=== PATIENT | female | born 1990 | race Caucasian/White ===

== ENCOUNTER 2019-01-07 12:14 | Outpatient (CLI) | payer MEDICAID, SELFPAY ==
[2019-01-08 11:56] LABS: Hepatitis B Surface Ag Negative (NEGAT)
[2019-01-08 12:04] LABS: Syphilis Serology (RPR) Negative (Negative)
[2019-01-08 12:37] LABS: HIV-1/2 Ag & Ab Screen Negative (NEGAT)
[2019-01-08 12:38] LABS: Hepatitis C Ab w Rflx HCV PCR Negative (NEGAT)
== END 2019-01-07 12:34 ==
PROVIDERS: Visit Provider Nurse Practitioner Women's Health
DX: Z11.3 Encounter for screening for infections with a predominantly sexual mode of transmission (principal); Z11.4 Encounter for screening for human immunodeficiency virus [HIV]; Z11.59 Encounter for screening for other viral diseases; Z01.84 Encounter for antibody response examination
CPT/HCPCS: 36415; 86803; 87340; 87389; 86592

== ENCOUNTER 2019-01-07 12:59 | Outpatient (REF) | payer MEDICAID, SELFPAY ==
--- NOTE | 2019-01-07 11:45 | PAPFT_PTH ---
PATIENT: Elidia Brennan LOC: [facility] U#:[id number] AGE/SX: 28/F ROOM: RE01/07/[address]: Anahi Montero NP : 1990 BED: DIS: 01/07/2019 SPEC #: [id number] RECD: 01/07/19 17:49 STATUS: ALECIA SANTILLAN #: [id number] HAIR: 01/07/19 11:[address]: Anahi Montero NP DEPT: [facility] Cytology RECD BY: Gena Davies ENTERED: 01/07/19 17:49 SP TYPE: PAPFT TRINOHR DR: Julieta Bhatti Tissues: 1 - CX/ENDOCX FOR PAP SMEARS Procedures: PAP THIN PREP/UVM Screening Comments: [id number] (CHLAMYDIA/GC)
[2019-01-08 15:05] LABS: Chlamydia Result Negative; GC Result Negative; Specimen Description SEE COMMENTS
== END 2019-01-07 13:19 ==
LOC: LBN 12:59
PROVIDERS: Visit Provider Nurse Practitioner Women's Health
DX: Z11.3 Encounter for screening for infections with a predominantly sexual mode of transmission (principal); Z12.4 Encounter for screening for malignant neoplasm of cervix; Z11.51 Encounter for screening for human papillomavirus (HPV)
CPT/HCPCS: 87491; 87591; 88142

== ENCOUNTER 2019-01-19 00:50 | Emergency (ER) | payer MEDICAID, SELFPAY ==
--- NOTE | 2019-01-19 00:55 | W.ED.GENAD ---
Discharge Plan Disposition Patient Disposition: HOME Condition: Stable Discharge Details Chief Complaint: Urinary Clinical Impression: Urinary frequency Primary Care Provider: Marina Rand ED Provider: Jesus Manuel Montero Home Meds and New Rx's Prescriptions: New cefuroxime axetil 500 mg tablet 500 mg PO Q12H 3 Days Qty: 6 RF: 0 phenazopyridine [Pyridium] 200 mg tablet 200 mg PO TID 0 Days RF: 0 No Action aspirin [Adult Aspirin Regimen] 81 mg tablet,delayed release (DR/EC) 81 mg PO DAILY RF: 0 ranitidine HCl [Zantac] 150 mg tablet 150 mg PO BID RF: 0 oxycodone 5 mg tablet 5 mg PO BID RF: 0 albuterol sulfate [ProAir HFA] 90 mcg/actuation HFA aerosol inhaler 2 puff IH Q6H PRNRF: 0 melatonin [Melatin] 3 mg tablet 3 mg PO HS PRNRF: 0 lidocaine 3 % cream 1 applic TP BID PRNRF: 0 Excedrin Extra Strength 250-250-65 mg tablet 2 tab PO Q6H PRNRF: 0 acetaminophen [Tylenol] 325 mg capsule 650 mg PO QID PRNRF: 0 [place] 3-15-5 % cream TP DAILY PRN RF: 0 turmeric root extract 500 mg capsule 500 mg PO BID RF: 0 Discharge Instructions Additional Instructions: you should be contacted with an appointment with urology for follow up if you develop severe back pain with fevers or persistent vomit or abdominal pain return to the emergency department for reevaluation Medical Decision Making 28 yo female with hx of interstitial cystitis comes in with urinary urgency and burning for about a week, finished 3 day course of cefuroxime on 01/18 and symptoms were improving but have returned. HAs no cva tenderness or abdominal tenderness or fevers so doubt pyelo or sepsis. symptoms are with urination so doubt cervicitis or other vaginal pathologies. Will obtain UA, could be cystitis vs interstitial cystitis urinalysis is unremarkable. She remains stable. She states that in the past she has needed 10 days of abx to treat her utis. I did advise this is a lengthy course and typically isn't recommended for cystitis. She is requesting 3 more days of abx and after discussion of pros and cons of this will provide her 3 more days of cerfuroxime. I am also going to refer her to urology at the [facility] for interstitial cystitis within the next few weeks. She was given return precautions Differential Diagnosis interstitial cystitis, uti, cystitis HPI General Mode of arrival: ambulatory. Date/Time Provider Initiated Documentation: 01/19/19 00:54. Limitations to Documentation: no limitations. Information obtained by: patient. History of Present Illness 28 year old F presents to the emergency department with the chief complaint of urinary urgency, described as moderate, Patient started experiencing this week(s) (1) and it has been constant. No relieving factors improve symptom(s), No exacerbating factors reported . Related Data Home Medications Medication Instructions Recorded Confirmed acetaminophen 325 mg capsule 650 mg PO QID PRN cap 01/07/19 01/07/19 albuterol sulfate HFA 90 2 puff IH Q6H PRN 01/07/19 01/07/19 mcg/actuation aerosol inhaler aspirin 81 mg tablet,delayed 81 mg PO DAILY 01/07/19 01/07/19 release lqzypak-wykkcircggoaj-ifofwmpg 250 2 tab PO Q6H PRN 01/07/19 01/07/19 mg-250 mg-65 mg tablet camphor-methyl salicylate-menthol applic TP DAILY PRN gm 01/07/19 01/07/19 3 %-15 %-5 % topical cream lidocaine 3 % topical cream 1 applic TP BID PRN 01/07/19 01/07/19 melatonin 3 mg tablet 3 mg PO HS PRN 01/07/19 01/07/19 oxycodone 5 mg tablet 5 mg PO BID tab 01/07/19 01/07/19 ranitidine 150 mg tablet 150 mg PO BID tab 01/07/19 01/07/19 turmeric root extract 500 mg 500 mg PO BID 01/07/19 01/07/19 capsule cefuroxime axetil 500 mg PO Q12H 3 Days #6 tab 01/19/19 phenazopyridine [Pyridium] 200 mg PO TID 0 Days tab 01/19/19 Previous Rx's Medication Instructions Recorded cefuroxime axetil 500 mg PO Q12H 3 Days #6 tab 01/19/19 phenazopyridine [Pyridium] 200 mg PO TID 0 Days tab 01/19/19 Allergies Allergy/AdvReac Type Severity Reaction Status Date / Time amoxicillin [From Augmentin] Allergy Severe Anaphylaxsi Verified 01/19/19 01:04 s clavulanic acid Allergy Severe Anaphylaxsi Verified 01/19/19 01:04 [From Augmentin] s egg Allergy Severe Anaphylaxsi Verified 01/19/19 01:04 s Penicillins Allergy Severe Anaphylaxsi Verified 01/19/19 01:04 s sulfamethoxazole Allergy Severe Anaphylaxsi Verified 01/19/19 01:04 [From Bactrim] s trimethoprim [From Bactrim] Allergy Severe Verified 01/19/19 01:04 gabapentin AdvReac Intermediate flushing Verified 01/19/19 01:04 and migraine headache Review of Systems Review of Systems All systems reviewed & are unremarkable except as noted in HPI and below Constitutional Denies chills and Denies fever(s) Cardiovascular Denies chest pain and Denies dyspnea Respiratory Denies cough and Denies dyspnea Gastrointestinal Denies abdominal pain, Denies nausea and Denies vomiting Psychiatric Denies depression [facility] Medical History Migraines (Chronic) PCOS (polycystic ovarian syndrome) (Acute) Interstitial cystitis (Acute) May-Thurner syndrome (Acute) Chronic pain (Chronic) Surgical History Hx of ovarian cystectomy (Acute) S/P cholecystectomy (Acute) [place] teeth extracted (Acute) Social History Smoking/Tobacco Use Status: Former Tobacco Use Alcohol Intake: current Alcohol Intake frequency: a few times a week Drug use: Never Do you feel safe at home: Yes Do you feel safe in your relationship?: Yes Female Reproductive History Menstrual control method: none History History 0 Para Hx # Term Pregnancies Multiple births Hx # Pregnancies Ectopic pregnancies AB induced Hx Number of Living Children AB spontaneous Exam Const General: no acute distress Orientation: alert HENMT Head: normal to inspection Ears: external ears normal General nose exam: external nose normal Mouth: moist mucous membranes Eyes General: appearance normal, both eyes and all related structures Neck Neck: normal visual inspection Resp Effort & Inspection: normal respiratory effort and able to speak in complete sentences Cardio Rate: regular rate GI Palpation: soft and nontender Back/Spine/Pelvis Back: no CVA tenderness Skin General skin exam: no rashes or lesions noted Neuro General: alert and oriented x3 Extrem General: normal to inspection Psych Mental Status: mental status grossly normal
[2019-01-19 00:59] VITALS: BP 121/72; PULSE 96; RESP 18; TEMP 37.2; O2SAT 99
[2019-01-19 01:03] LABS: Bilirubin Negative (Negative); Blood Negative (Negative); Clarity Clear; Glucose Negative (Negative); Ketones Negative (Negative); Leukocyte Esterase Negative (Negative); Nitrite Negative (Negative); Specific Gravity 1.025 (1.005-1.025); Urobilinogen 0.2 EU/dL (Up TO 0.2)
--- NOTE | 2019-01-19 01:14 | ED.GENADUL_ITS ---
Discharge Plan Disposition Patient Disposition: HOME Condition: Stable Discharge Details Chief Complaint: Urinary Clinical Impression: Urinary frequency Primary Care Provider: Marina Rand ED Provider: Jesus Manuel Montero Home Meds and New Rx's Prescriptions: New cefuroxime axetil 500 mg tablet 500 mg PO Q12H 3 Days Qty: 6 RF: 0 phenazopyridine [Pyridium] 200 mg tablet 200 mg PO TID 0 Days RF: 0 No Action aspirin [Adult Aspirin Regimen] 81 mg tablet,delayed release (DR/EC) 81 mg PO DAILY RF: 0 ranitidine HCl [Zantac] 150 mg tablet 150 mg PO BID RF: 0 oxycodone 5 mg tablet 5 mg PO BID RF: 0 albuterol sulfate [ProAir HFA] 90 mcg/actuation HFA aerosol inhaler 2 puff IH Q6H PRNRF: 0 melatonin [Melatin] 3 mg tablet 3 mg PO HS PRNRF: 0 lidocaine 3 % cream 1 applic TP BID PRNRF: 0 Excedrin Extra Strength 250-250-65 mg tablet 2 tab PO Q6H PRNRF: 0 acetaminophen [Tylenol] 325 mg capsule 650 mg PO QID PRNRF: 0 [place] 3-15-5 % cream TP DAILY PRN RF: 0 turmeric root extract 500 mg capsule 500 mg PO BID RF: 0 Discharge Instructions Additional Instructions: you should be contacted with an appointment with urology for follow up if you develop severe back pain with fevers or persistent vomit or abdominal pain return to the emergency department for reevaluation Medical Decision Making 28 yo female with hx of interstitial cystitis comes in with urinary urgency and burning for about a week, finished 3 day course of cefuroxime on 01/18 and symptoms were improving but have returned. HAs no cva tenderness or abdominal tenderness or fevers so doubt pyelo or sepsis. symptoms are with urination so doubt cervicitis or other vaginal pathologies. Will obtain UA, could be cystitis vs interstitial cystitis urinalysis is unremarkable. She remains stable. She states that in the past she has needed 10 days of abx to treat her utis. I did advise this is a lengthy course and typically isn't recommended for cystitis. She is requesting 3 more days of abx and after discussion of pros and cons of this will provide her 3 more days of cerfuroxime. I am also going to refer her to urology at [facility] for interstitial cystitis within the next few weeks. She was given return precautions Differential Diagnosis interstitial cystitis, uti, cystitis HPI General Mode of arrival: ambulatory . Date/Time Provider Initiated Documentation: 01/19/19 00:54 . Limitations to Documentation: no limitations . Information obtained by: patient . History of Present Illness 28 year old F presents to the emergency department with the chief complaint of urinary urgency, described as moderate, Patient started experiencing this week(s) (1) and it has been constant. No relieving factors improve symptom(s), No exacerbating factors reported . Related Data Home Medications Medication Instructions Recorded Confirmed acetaminophen 325 mg capsule 650 mg PO QID PRN cap 01/07/19 01/07/19 albuterol sulfate HFA 90 2 puff IH Q6H PRN 01/07/19 01/07/19 mcg/actuation aerosol inhaler aspirin 81 mg tablet,delayed 81 mg PO DAILY 01/07/19 01/07/19 release sitpxru-bqxsjiofcmdtr-vsnzpalp 250 2 tab PO Q6H PRN 01/07/19 01/07/19 mg-250 mg-65 mg tablet camphor-methyl salicylate-menthol applic TP DAILY PRN gm 01/07/19 01/07/19 3 %-15 %-5 % topical cream lidocaine 3 % topical cream 1 applic TP BID PRN 01/07/19 01/07/19 melatonin 3 mg tablet 3 mg PO HS PRN 01/07/19 01/07/19 oxycodone 5 mg tablet 5 mg PO BID tab 01/07/19 01/07/19 ranitidine 150 mg tablet 150 mg PO BID tab 01/07/19 01/07/19 turmeric root extract 500 mg 500 mg PO BID 01/07/19 01/07/19 capsule cefuroxime axetil 500 mg PO Q12H 3 Days #6 tab 01/19/19 phenazopyridine [Pyridium] 200 mg PO TID 0 Days tab 01/19/19 Previous Rx's Medication Instructions Recorded cefuroxime axetil 500 mg PO Q12H 3 Days #6 tab 01/19/19 phenazopyridine [Pyridium] 200 mg PO TID 0 Days tab 01/19/19 Allergies Allergy/AdvReac Type Severity Reaction Status Date / Time amoxicillin [From Augmentin] Allergy Severe Anaphylaxsi Verified 01/19/19 01:04 s clavulanic acid Allergy Severe Anaphylaxsi Verified 01/19/19 01:04 [From Augmentin] s egg Allergy Severe Anaphylaxsi Verified 01/19/19 01:04 s Penicillins Allergy Severe Anaphylaxsi Verified 01/19/19 01:04 s sulfamethoxazole Allergy Severe Anaphylaxsi Verified 01/19/19 01:04 [From Bactrim] s trimethoprim [From Bactrim] Allergy Severe Verified 01/19/19 01:04 gabapentin AdvReac Intermediate flushing Verified 01/19/19 01:04 and migraine headache Review of Systems Review of Systems All systems reviewed & are unremarkable except as noted in HPI and below Constitutional Denies chills and Denies fever(s) Cardiovascular Denies chest pain and Denies dyspnea Respiratory Denies cough and Denies dyspnea Gastrointestinal Denies abdominal pain, Denies nausea and Denies vomiting Psychiatric Denies depression [facility] Medical History Migraines (Chronic) PCOS (polycystic ovarian syndrome) (Acute) Interstitial cystitis (Acute) May-Thurner syndrome (Acute) Chronic pain (Chronic) Surgical History Hx of ovarian cystectomy (Acute) S/P cholecystectomy (Acute) [place] teeth extracted (Acute) Social History Smoking/Tobacco Use Status: Former Tobacco Use Alcohol Intake: current Alcohol Intake frequency: a few times a week Drug use: Never Do you feel safe at home: Yes Do you feel safe in your relationship?: Yes Female Reproductive History Menstrual control method: none History History 0 Para Hx # Term Pregnancies Multiple births Hx # Pregnancies Ectopic pregnancies AB induced Hx Number of Living Children AB spontaneous Exam Const General: no acute distress Orientation: alert HENMT Head: normal to inspection Ears: external ears normal General nose exam: external nose normal Mouth: moist mucous membranes Eyes General: appearance normal, both eyes and all related structures Neck Neck: normal visual inspection Resp Effort & Inspection: normal respiratory effort and able to speak in complete sentences Cardio Rate: regular rate GI Palpation: soft and nontender Back/Spine/Pelvis Back: no CVA tenderness Skin General skin exam: no rashes or lesions noted Neuro General: alert and oriented x3 Extrem General: normal to inspection Psych Mental Status: mental status grossly normal
[2019-01-19] MEDS: Cefuroxime 500 MG TAB PO (01:29)
--- NOTE | 2019-01-19 10:11 | NUR.NOTE ---
Nursing Note: [facility] Urology referral for follow up. Carmen Guzman.
== END 2019-01-19 01:34 | disposition home or self-care (01) ==
PROVIDERS: Emergency Provider Emergency Medicine; PCP Nurse Practitioner Family
DX: R35.0 Frequency of micturition (principal); R39.15 Urgency of urination; N30.10 Interstitial cystitis (chronic) without hematuria
CPT/HCPCS: 81025; 99283; 81003; 87086

== ENCOUNTER 2019-08-25 00:51 | Outpatient (CLI) | payer MEDICAID, SELFPAY ==
--- NOTE | 2019-08-25 12:07 | DI.MRI_ITS ---
EXAM: MR CERVICAL SPINE WO CLINICAL HISTORY: RADICULOPATHY, CERVICAL REGION M54.12. TECHNIQUE: Multiplanar multisequence MRI was performed. COMPARISON: No exams were available for comparison FINDINGS: Marrow signal and cord signal appear normal. The C2-3, C3-4 at C4-5 discs are unremarkable. There is minimal bulging of the C5-6 and C6-7 discs. There is no central canal stenosis or neural foraminal narrowing. No focal disc herniation is seen at any level. IMPRESSION: Minimal disc bulging at C5-6 and C6-7.
== END 2019-08-25 01:11 ==
PROVIDERS: PCP Nurse Practitioner Family; Visit Provider Nurse Practitioner Family
DX: M54.12 Radiculopathy, cervical region; M50.122 Cervical disc disorder at C5-C6 level with radiculopathy; M50.123 Cervical disc disorder at C6-C7 level with radiculopathy
CPT/HCPCS: 72141

== ENCOUNTER 2019-09-30 03:52 | Emergency (ER) | payer MEDICAID, SELFPAY ==
[2019-09-30 03:59] VITALS: BP 119/77; PULSE 86; RESP 16; TEMP 36.6; O2SAT 100
--- NOTE | 2019-09-30 03:59 | W.ED.GENAD ---
Discharge Plan Disposition Patient Disposition: HOME Condition: Good Discharge Details Chief Complaint: Urinary Clinical Impression: UTI (urinary tract infection) Primary Care Provider: Marina Rand ED Provider: Tahir Wallace [place] Meds and New Rx's Prescriptions: New ondansetron 4 mg tablet,disintegrating 4 mg PO Q8H PRN (Reason: nausea and vomiting) Qty: 7 RF: 0 nitrofurantoin monohyd/m-cryst [Macrobid] 100 mg capsule 100 mg PO BID Qty: 7 RF: 0 Continued aspirin [Adult Aspirin Regimen] 81 mg tablet,delayed release (DR/EC) 81 mg PO DAILY RF: 0 ranitidine HCl [Zantac] 150 mg tablet 150 mg PO BID RF: 0 oxycodone 5 mg tablet 5 mg PO BID RF: 0 albuterol sulfate [ProAir HFA] 90 mcg/actuation HFA aerosol inhaler 2 puff IH Q6H PRNRF: 0 melatonin [Melatin] 3 mg tablet 3 mg PO HS PRNRF: 0 lidocaine 3 % cream 1 applic TP BID PRNRF: 0 Excedrin Extra Strength 250-250-65 mg tablet 2 tab PO Q6H PRNRF: 0 acetaminophen [Tylenol] 325 mg capsule 650 mg PO QID PRNRF: 0 [place] 3-15-5 % cream 1 applic TP DAILY PRN RF: 0 turmeric root extract 500 mg capsule 500 mg PO BID RF: 0 phenazopyridine [Pyridium] 200 mg Tablet 200 mg PO TID PRNRF: 0 Discharge Instructions Instructions: Ondansetron (By mouth), Nitrofurantoin Combination (By mouth), Urinary Tract Infection in Women (ED) Additional Instructions: Continue your Pyridium. Use Zofran as needed for nausea vomiting. Macrobid as directed for 5 days. Follow-up with primary care next week if not better. Return to ED for increasing pain, vomiting, fever, mental status changes, other concerns or problems. Referrals: Marina Rand [Primary Care Provider] - Medical Decision Making Urine test negative. Urine micro and culture ordered. Will give Zofran ODT for nausea and Macrobid for presumed UTI. Patient to continue her Pyridium. Follow-up with primary care next week if continued symptoms. Return to ED if high fever, vomiting, worsening pain, mental status changes, other concerns. HPI General Mode of arrival: ambulatory. Date/Time Provider Initiated Documentation: 09/30/19 03:58. Limitations to Documentation: no limitations. Information obtained by: patient and RN notes reviewed. HPI Narrative: Patient presents to ED with dysuria, urgency, frequency that began yesterday. She has had some chills but no fever that she is aware of. She has nausea but no vomiting. She has a lot of suprapubic lower abdominal discomfort. She has a history of frequent UTIs. She has a standing order for Pyridium which she has been taking. She does not have any antibiotics at home. She presents this coding coordinator with continued urinary symptoms. Related Data Home Medications Medication Instructions Recorded Confirmed acetaminophen 325 mg capsule 650 mg PO QID PRN cap 01/07/19 09/30/19 albuterol sulfate 90 mcg/actuation 2 puff IH Q6H PRN 01/07/19 09/30/19 aerosol inhaler aspirin 81 mg tablet,delayed 81 mg PO DAILY 01/07/19 09/30/19 release enqukua-cgbxhxdfovarg-tivalfnb 250 2 tab PO Q6H PRN 01/07/19 09/30/19 mg-250 mg-65 mg tablet camphor-methyl salicylate-menthol 1 applic TP DAILY PRN gm 01/07/19 09/30/19 3 %-15 %-5 % topical cream lidocaine 3 % topical cream 1 applic TP BID PRN 01/07/19 09/30/19 melatonin 3 mg tablet 3 mg PO HS PRN 01/07/19 09/30/19 oxycodone 5 mg tablet 5 mg PO BID tab 01/07/19 09/30/19 ranitidine HCl 150 mg tablet 150 mg PO BID tab 01/07/19 09/30/19 turmeric root extract 500 mg 500 mg PO BID 01/07/19 09/30/19 capsule nitrofurantoin monohyd/m-cryst 100 mg PO BID #7 cap 09/30/19 [Macrobid] ondansetron 4 mg PO Q8H PRN #7 tab 09/30/19 phenazopyridine [Pyridium] 200 mg PO TID PRN 09/30/19 09/30/19 Previous Rx's Medication Instructions Recorded nitrofurantoin monohyd/m-cryst 100 mg PO BID #7 cap 09/30/19 [Macrobid] ondansetron 4 mg PO Q8H PRN #7 tab 09/30/19 Allergies Allergy/AdvReac Type Severity Reaction Status Date / Time amoxicillin [From Augmentin] Allergy Severe Anaphylaxsi Verified 09/30/19 04:07 s clavulanic acid Allergy Severe Anaphylaxsi Verified 09/30/19 04:07 [From Augmentin] s egg Allergy Severe Anaphylaxsi Verified 09/30/19 04:07 s Penicillins Allergy Severe Anaphylaxsi Verified 09/30/19 04:07 s sulfamethoxazole Allergy Severe Anaphylaxsi Verified 09/30/19 04:07 [From Bactrim] s trimethoprim [From Bactrim] Allergy Severe Verified 09/30/19 04:07 gabapentin AdvReac Intermediate flushing Verified 09/30/19 04:07 and migraine headache General PAVEL: 4 Review of Systems Narrative: As documented in HPI otherwise negative as below. Const: chills; no fever, weakness Resp: no cough, SOB, pleuritic pain CV: no CP, diaphoresis, edema, syncope GI: abdominal pain, nausea; no vomiting, diarrhea Neuro: no headache, numbness, focal weakness, confusion PFSH Medical History (Updated 09/30/19 @ 04:00 by Tahir Wallace MD) Chronic pain (Chronic) back and legs r/t May-thurner syndrome Interstitial cystitis (Chronic) May-Thurner syndrome (Chronic) Migraines (Chronic) PCOS (polycystic ovarian syndrome) (Chronic) Surgical History Hx of ovarian cystectomy (Acute) S/P cholecystectomy (Acute) [place] teeth extracted (Acute) Social History Smoking/Tobacco Use Status: Former Tobacco Use Alcohol Intake: current Alcohol Intake frequency: holidays/special occasions only Drug use: Never Do you feel safe at home: Yes Do you feel safe in your relationship?: Yes Female Reproductive History Menstrual control method: none History History 0 Para Hx # Term Pregnancies Multiple births Hx # Pregnancies Ectopic pregnancies AB induced Hx Number of Living Children AB spontaneous Exam Narrative Exam Narrative: Vitals: Afebrile with normal vital signs and room air pulse ox. Const: Obese female in NAD. HEENT: NC/AT. Normal facial exam. Eyes: Normal conjunctiva and sclera. Neck: Supple. Trachea midline. Lungs: Normal respiratory effort. Cor: RRR without murmur/gallop. GI: Soft. NT/ND. No guarding or rebound. Back: No CVAT. Neuro: A+O x 3. Normal speech, mentation, gait. No focal motor or sensory deficits.
[2019-09-30 04:21] LABS: Bacteria Few HPF (Negative); C & S Indicated? C&S Done As Ordered; Casts Negative LPF (Negative); Crystals Negative HPF (Negative); Epithelial Cells Few HPF (Negative); Mucus Negative (Negative)
[2019-09-30] MEDS: Ondansetron O.D.T. 4 MG TABEF PO (04:44)
[2019-09-30] MEDS: MacroBID 100 MG CAP PO (04:44)
[2019-09-30] MEDS: Ondansetron O.D.T. 4 MG TABEF, 3 TABS/BTL PO (04:45)
[2019-09-30] MEDS: MacroBID 100 MG CAP, 2 CAPS/BTL PO (04:45)
== END 2019-09-30 04:45 | disposition home or self-care (01) ==
LOC: ER 04:28
PROVIDERS: Emergency Provider Emergency Medicine; PCP Nurse Practitioner Family
DX: N39.0 Urinary tract infection, site not specified (principal); R11.0 Nausea; R10.30 Lower abdominal pain, unspecified; Z87.440 Personal history of urinary (tract) infections
CPT/HCPCS: 81025; 99283; 81003; 81015; 87086

== ENCOUNTER 2020-08-31 15:07 | Emergency (ER) | payer MEDICAID, SELFPAY ==
[2020-08-31 15:29] VITALS: BP 131/78; PULSE 95; RESP 18; TEMP 36.4; O2SAT 100
--- NOTE | 2020-08-31 15:41 | W.ED.GENAD ---
Discharge Plan Disposition Patient Disposition: HOME Condition: Stable Discharge Details Clinical Impression: Arm pain, Hand tingling Primary Care Provider: Marina Rand ED Provider: Lilly Holley Home Meds and New Rx's Prescriptions: Continued aspirin [Adult Aspirin Regimen] 81 mg tablet,delayed release (DR/EC) 81 mg PO DAILY RF: 0 oxycodone 5 mg tablet 10 mg PO BID RF: 0 albuterol sulfate [ProAir HFA] 90 mcg/actuation HFA aerosol inhaler 2 puff IH Q6H PRNRF: 0 melatonin [Melatin] 3 mg tablet 3 mg PO HS PRNRF: 0 lidocaine 3 % cream 1 applic TP BID PRNRF: 0 Excedrin Extra Strength 250-250-65 mg tablet 2 tab PO Q6H PRNRF: 0 acetaminophen [Tylenol] 325 mg capsule 650 mg PO QID PRNRF: 0 Discharge Instructions Additional Instructions: Your imaging does show an area of stenosis. However, spine surgery at [facility] did review this do not feel that it is significant enough to be producing your symptoms. They will happily follow-up with him in the clinic, their office will call you to schedule appointment. I have also refer you to pain management. If you would like to discuss further narcotic options please discuss this further with your primary care physician. If you develop any fever/chills, weakness or other new/worsening symptoms please seek care urgently once again. Referrals: Marina Rand [Primary Care Provider] - Medical Decision Making Patient is a pleasant 29 year old female presenting today with c/c of BUE pain and intermittent numbness. She states that it began approximately 3 days ago and is worse upon awakening in the morning. She is able to pursue except her hands can be stiff. She reports that during this time she has difficulty with extremes of movement such as making a fist or extending her fingers all the way but the left side throughout the course of the day. States that she can have intermittent, migratory numbness in her hands. States that she has chronic pain in her neck and known bulging disc in C-spine that was diagnosed on MRI last year after she had presented to her primary care with similar symptoms. There is concern that this is associated with worsening disease in her neck. She does not note that her symptoms are worse with movements of the. She is not had any recent trauma. She does report that she has been helping her mother move which is caused her to have increased physical exertion recently. Patient is on chronic narcotics he states that the pain medication has not been sufficient helping with the pain in her hands. It is the increase in discomfort that is prompted her seek care in the emergency department today. On exam, patient appears anxious. She appears nontoxic. She has full range of motion of her cervical spine and negative Spurling's test. She is full range of motion of both upper extremities at the shoulder, elbow, wrist and hand. 2+ distal pulses. Reflexes are intact. She has good dexterity. Two-point discrimination is intact although on the left middle and the right pinky she reported that while she can feel the areas of pressure, they feel less than the other digits. EKG was obtained showing an heart rate of 85. Reviewed by Dr. Arredondo with no acute ischemic changes noted. Reviewed the patient's previous MRI. In 2019 she did have minimal disc bulging at C5-6 and C6-7. Spoke with Dr. Rg. She feels that CT would be a good initial test of choice as it is too late in the day to obtain MRI. Plan also to obtain baseline labs to evaluate for potential electrolyte abnormality. I do find this less likely as the patient is not having any lower extremity normal constitutional symptoms. Labs reviewed. No leukocytosis. Normal H&H. Her CMP is completely within normal limits. Troponin is normal. FINDINGS: Bones/joints: No acute fracture. Normal alignment. Discs/Spinal canal/Neural foramina: Bilateral uncinate hypertrophy at C4-C5 results in mild to moderate right and mild left neural foraminal narrowing. Soft tissues: Unremarkable. Lungs: Lung apices are normal. IMPRESSION: Bilateral uncinate hypertrophy at C4-C5 results in mild to moderate right and mild left neural foraminal narrowing. Otherwise, no significant spinal canal stenosis or neural foraminal narrowing. Consulted with spine surgery at [facility]. They were able to review the patient's imaging as well as her history. As she may have carpal tunnel syndrome. Her exam was not completely consistent with this. I believe further evaluation with potential EMG would be appropriate. Discussed the findings with the patient. Again, her concerns are back to increasing her medication dosing. She is already on high-dose of narcotics daily IM. Regarding the overall safety of this. I did discuss nonnarcotic options. She admits to some for chronic pain management for several years and been unsuccessful with nonnarcotic options. Rather than continue to increase her narcotic dosing, plan to refer her to pain management as well as have her follow-up with spine surgery at [facility]. I did give her contact information to [facility] and will be contacting her regarding follow-up. I discussed the recommendations of spine surgery at length with the patient. We did discuss the difficulty with chronic pain and appropriate management. I feel that she is best discharged with the pain specialist as well as neurology. Patient does agree with this plan. Other questions or concerns were addressed. Return precautions were discussed. She will continue with her outpatient medication management will reach out to her primary care to schedule prompt follow-up appointment. Shortly after the patient was discharged, I was called back by orthopedic funding specialist who advised that the attending did not feel the patient needed clinic evaluation or office. At this point, we will focus on primary care and pain specialist. HPI General Mode of arrival: ambulatory. Date/Time Provider Initiated Documentation: 08/31/20 15:41. Limitations to Documentation: no limitations. Information obtained by: patient and RN notes reviewed. History of Present Illness 29 year old F presents to the emergency department with the chief complaint of BUE pain, intermittent migratory numbness to BUE, described as moderate, with intensity rated at 7. Quality is described as sharp, and is localized to the left, right and upper extremity. Patient reports radiation to (entirety of the extremity). Patient started experiencing this day(s) (3) and it has been intermittent. No relieving factors improve symptom(s), Other factors that worsen symptoms (worse when waking up) . Patient notes no other symptoms.. Patient did receive the following treatments prior to arrival, other (oxycodone) Related Data Home Medications Medication Instructions Recorded Confirmed acetaminophen 325 mg capsule 650 mg PO QID PRN cap 01/07/19 08/31/20 albuterol sulfate 90 mcg/actuation 2 puff IH Q6H PRN 01/07/19 08/31/20 aerosol inhaler aspirin 81 mg tablet,delayed 81 mg PO DAILY 01/07/19 08/31/20 release woroioc-inwptkqzufhlw-antnwcou 250 2 tab PO Q6H PRN 01/07/19 08/31/20 mg-250 mg-65 mg tablet lidocaine 3 % topical cream 1 applic TP BID PRN 01/07/19 08/31/20 melatonin 3 mg tablet 3 mg PO HS PRN 01/07/19 08/31/20 oxycodone 5 mg tablet 10 mg PO BID tab 01/07/19 08/31/20 Allergies Allergy/AdvReac Type Severity Reaction Status Date / Time amoxicillin [From Augmentin] Allergy Severe Anaphylaxsi Verified 09/30/19 04:07 s clavulanic acid Allergy Severe Anaphylaxsi Verified 09/30/19 04:07 [From Augmentin] s egg Allergy Severe Anaphylaxsi Verified 09/30/19 04:07 s Penicillins Allergy Severe Anaphylaxsi Verified 09/30/19 04:07 s sulfamethoxazole Allergy Severe Anaphylaxsi Verified 09/30/19 04:07 [From Bactrim] s trimethoprim [From Bactrim] Allergy Severe Verified 09/30/19 04:07 gabapentin AdvReac Intermediate flushing Verified 09/30/19 04:07 and migraine headache General Stated Complaint: GenMedical PAVEL: 3 Review of Systems Constitutional Constitutional: Reports as per HPI, Denies chills, Denies fever(s), Denies frequent falls, Denies headache(s) and Denies snoring Eyes Eyes: Reports as per HPI, Denies blurry vision and Denies change in vision ENT Ears, Nose, Mouth, and Throat: Denies vertigo, Denies headache(s) and Reports neck pain (chronic, unchanged) Cardiovascular Cardiovascular: Reports as per HPI, Denies chest pain, Denies lightheadedness, Denies radiating jaw, neck or arm pain, Denies dyspnea and Denies dyspnea on exertion Respiratory Respiratory: Reports as per HPI, Denies chest congestion, Denies cough, Denies dyspnea, Denies dyspnea on exertion, Denies snoring, Denies stridor and Denies wheezing Gastrointestinal Gastrointestinal: Reports as per HPI, Denies abdominal pain, Denies change in bowel habits, Denies nausea and Denies vomiting Musculoskeletal Musculoskeletal: Reports as per HPI, Denies back pain, Denies myalgias, Denies muscle cramps, Reports neck pain (chronic, unchanged), Reports numbness (intermittent to BUE), Reports radiating pain into limb and Reports tingling Integumentary/Breasts Skin/Breast: Reports as per HPI and Denies rash Neurologic Neurologic: Reports as per HPI, Denies abnormal movements, Denies abnormal speech, Denies behavioral changes, Denies confusion, Denies vertigo, Denies frequent falls, Denies headache(s), Reports localized weakness (bilateral hands), Reports numbness (intermittent to BUE), Reports radicular pain, Reports sensory deficit and Reports tingling Psychiatric Psychiatric: Denies behavioral changes and Denies confusion Allergic/Immunologic Allergic/Immunologic: Denies wheezing [facility] Medical History (Updated 08/31/20 @ 19:00 by VILMA Palumbo) 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 Interstitial cystitis February-Thurner syndrome Migraines PCOS (polycystic ovarian syndrome) Surgical History Hx of ovarian cystectomy S/P cholecystectomy [place] teeth extracted Social History Smoking/Tobacco Use Status: Former Tobacco Use Smoking risk assessment performed?: Yes Alcohol Intake: current Alcohol Intake frequency: holidays/special occasions only Drug use: Never Substance use type: crack/cocaine Do you feel safe at home: Yes Do you feel safe in your relationship?: Yes Female Reproductive History Menstrual control method: none History History 0 Para Hx # Term Pregnancies Multiple births Hx # Pregnancies Ectopic pregnancies AB induced Hx Number of Living Children AB spontaneous Exam Const General: cooperative, healthy appearing, comfortable, well developed, well groomed and anxious Nutritional Appearance: well nourished and overweight Orientation: alert, awake and oriented x3 HENMT Head: normal to inspection, no palpable skull fracture, normocephalic and atraumatic Ears: hearing grossly normal bilaterally, external ears normal and TM's normal bilaterally General nose exam: external nose normal Mouth: oral mucosae normal and moist mucous membranes Throat: posterior oropharynx normal Eyes General: appearance normal, both eyes and all related structures Alignment and Position: alignment normal Periorbital: periorbital findings normal Eyelids: eyelids normal Sclera: sclerae normal Cornea: corneas normal Pupils: PERRL EOM: EOM intact bilaterally Neck Neck: normal visual inspection, full ROM, no lymphadenopathy, no meningeal signs and other (negative Spurlings exam) Resp Effort & Inspection: normal respiratory effort, able to speak in complete sentences and no respiratory distress Auscultation: clear to auscultation bilaterally, no rales, no rhonchi and no wheezes Cardio Rate: regular rate Rhythm: regular rhythm Heart Sounds: S1 normal and S2 normal Back/Spine/Pelvis Cervical Spine: normal cervical lordosis, cervical ROM normal, No cervical muscular tenderness, No pain with cervical ROM, No cervical spasm, No cervical spinal tenderness and No step off deformity Skin General skin exam: scars (multitude of linear scars to bilateral forearms) Neuro General: patient alert, patient awake and patient oriented x3 Cranial Nerves: CN's II-XI intact bilaterally Cognition: normal cognition Speech: speech normal Gait: normal gait Motor: muscle tone normal throughout, strength 5/5 throughout, no pronator drift, no movement abnormalities noted and no fasciculations Sensory Exam: no sensory deficits noted and normal double simultaneous stimulation DTR's: Rt Triceps: 2+, Lt Triceps: 2+, Rt Biceps: 2+, Lt Biceps: 2+, Rt Brachioradialis: 2+ and Lt Brachioradialis: 2+ Extrem General: normal to inspection, capillary refill normal, no pedal edema and no calf tenderness Psych Appearance: grossly normal and well kempt Mental Status: mental status grossly normal Speech and Movement: speech and movement normal Course Vital Signs Vital signs: Vital Signs Temperature 36.4 C L 08/31/20 15:29 Pulse 95 H 08/31/20 15:29 Respiratory Rate 18 08/31/20 15:29 Blood Pressure 131/78 08/31/20 15:29 Pulse Oximetry 100 08/31/20 15:29 Temperature 36.4 C L 08/31/20 15:29 Pulse 95 H 08/31/20 15:29 Respiratory Rate 18 08/31/20 15:29 Respiratory Effort Non-Labored 08/31/20 15:41 Blood Pressure 131/78 08/31/20 15:29 Blood Pressure Position Sitting 08/31/20 15:29 Pulse Oximetry 100 08/31/20 15:29 Oxygen Delivery Method Room Air 08/31/20 15:29 Oxygen Flow Rate 0 08/31/20 15:29 Pain Level 7 08/31/20 15:29 Lab/Test Results Lab/Test Results: POC- Test(urine) Negative
--- NOTE | 2020-08-31 15:45 | RT.EKG_ITS ---
APPROVED REPORT Exam: Resting ECG Patient Location: E HR:85 bpm ECG Measurements Heart Rate 85 AXIS SD 138 P 72 QRSd 79 QRS 68 QT 365 T 21 QTc 435 Conclusion Sinus rhythm...normal P axis, V-rate 60- 99 I have reviewed and interpreted ECG and agree with software generated interpretation.
--- NOTE | 2020-08-31 16:00 | DI.CT_ITS ---
EXAM: CT CERVICAL SPINE WO CLINICAL HISTORY: bilateral hand pain. TECHNIQUE: Imaging Protocol: Axial computed tomography images with coronal and sagittal reformatted images were created and reviewed CONTRAST MATERIAL: Intravenous: NONE- Oral: NO COMPARISON: No exams were available for comparison FINDINGS: Bones: There is reversal of the normal curvature of the cervical spine. There is no evidence of frac ture or listhesis. No facet malalignment. No spinal canal stenosis. No prominent foraminal stenosis. No significant facet arthropathy. Soft Tissues: The soft tissues of the neck are unremarkable. No large disk herniations are identified . IMPRESSION: There is reversal of the normal curvature of the cervical spine which is possibly due to muscle spasm or positioning. There is no evidence of fracture, facet malalignment, nor acute compromise of the cervical spinal can al. RADIATION DOSE DELIVERED: 341.3mGy.cm Total DLP DATA REPOSITORY: All CT scans at this facility are submitted to the National Radiology Data Registry (NRDR) Dose Index Registry (DIR) with the [employer] (A[employer]). RADIATION OPTIMIZATION: All CT scans at this facility use at least one of these dose optimization te chniques: automated exposure control; mA and/or kV adjustment per patient size (includes targeted exa ms where dose is matched to clinical indication); or iterative reconstruction.
[2020-08-31 16:37] LABS: Abs Immature Grans 0.01 10^3/uL (0.0-0.06); Absolute Basophil Count 0.05 10^3/uL (0.0-0.2); Absolute Lymphocyte Count 1.99 10^3/uL (1.2-3.4); Absolute Monocyte Count 0.37 10^3/uL (0.1-0.8); Absolute Neutrophil Count 2.95 10^3/uL (1.2-6.7); Basophils % 0.8; Eosinophils % 11.5; HCT 44.8 % (36.0-46.0); HGB 14.5 g/dL (11.2-15.7); Immature Grans % 0.2; Lymphocytes % 32.8; MCH 28.5 pg (27.0-33.0); MCHC 32.4 % (32.0-36.0); MPV 10.1 fL (8.0-11.0); Monocytes % 6.1; Neutrophils % 48.6; Nucleated RBC 0 %; Platelet Count 343 10^3/uL (130-400); RBC 5.09 10^6/uL (3.93-5.22); RDW 12.9 % (11.7-14.6); RDW-SD 41.9 fL; WBC 6.07 10^3/uL (4.4-10.8)
[2020-08-31] MEDS: Ibuprofen 600 MG TAB PO (16:56)
[2020-08-31] MEDS: Acetaminophen 500 MG TAB 1000 MG PO (16:56)
[2020-08-31 17:06] LABS: ALT 40 U/L (14-59); AST 19 U/L (15-37); Albumin 3.9 g/dL (3.4-5.0); Alkaline Phosphatase 70 U/L (46-116); Anion Gap 4.8 mmol/L (3-11); BUN 12 mg/dL (7-18); Bilirubin, Total 0.4 mg/dL (0.2-1.0); CO2 30.2 mmol/L (21.0-32.0); CREATININE 0.93 mg/dL (0.55-1.02); Chloride 104 mmol/L (98-107); Glucose 93 mg/dL (74-106); Magnesium 1.8 mg/dL (1.8-2.4); Potassium 3.7 mmol/L (3.5-5.1); Sodium 139 mmol/L (136-145); Total Protein 7.4 g/dL (6.4-8.2)
[2020-08-31 17:13] LABS: Troponin I < 0.05 ng/mL (<0.06)
--- NOTE | 2020-08-31 17:24 | DI.VRAD_ITS ---
PROCEDURE INFORMATION: Exam: CT Cervical Spine Without Contrast Exam date and time: 08/31/2020 4:52 PM Age: 29 years old Clinical indication: Bilateral hand pain TECHNIQUE: Imaging protocol: Computed tomography images of the cervical spine without contrast. COMPARISON: MR CERVICAL SPINE WO 08/25/2019 11:25 AM FINDINGS: Bones/joints: No acute fracture. Normal alignment. Discs/Spinal canal/Neural foramina: Bilateral uncinate hypertrophy at C4-C5 results in mild to moderate right and mild left neural foraminal narrowing. Soft tissues: Unremarkable. Lungs: Lung apices are normal. IMPRESSION: Bilateral uncinate hypertrophy at C4-C5 results in mild to moderate right and mild left neural foraminal narrowing. Otherwise, no significant spinal canal stenosis or neural foraminal narrowing. Dictated and Authenticated by: Nahun Barnes MD. Ordering:YOVANNY Carr MD
[2020-08-31 18:21] VITALS: BP 117/71; PULSE 83; RESP 18; TEMP 36.9; O2SAT 100
[2020-08-31 18:57] VITALS: BP 110/67; PULSE 78; RESP 18; TEMP 36.7; O2SAT 100
--- NOTE | 2020-09-01 08:01 | NUR.NOTE ---
Referral to Care Management to refer to [facility] Pain Clinic.Nursing Note:
--- NOTE | 2020-09-07 19:45 | W.ED.FU ---
Referral to pain clinic was sent. Pain management requested an order for this, this is put in after the date of service for continued care of her chronic pain
== END 2020-08-31 19:05 | disposition home or self-care (01) ==
PROVIDERS: Emergency Provider Physician Assistant; PCP Nurse Practitioner Family
DX: M79.601 Pain in right arm (principal); M79.602 Pain in left arm; R20.2 Paresthesia of skin; M54.2 Cervicalgia; G89.29 Other chronic pain; Z79.891 Long term (current) use of opiate analgesic
CPT/HCPCS: 36415; 80053; 81025; 93005; 99285; 72125; 83735; 84484; 85025; 93010

== ENCOUNTER 2020-09-22 00:31 | Outpatient (CLI) | payer MEDICAID, SELFPAY ==
--- NOTE | 2020-09-22 | DI.MRI_ITS ---
EXAM: MR CERVICAL SPINE WO CLINICAL HISTORY: RADICULOPATHY CERVICAL REGION,M54.12,NUMBNESS AND WEAKNESS HANDS,? CORD COM TECHNIQUE: Multiplanar multisequence MRI was performed. COMPARISON: MR MR CERVICAL SPINE WO from 08/25/2019 FINDINGS: MR examination cervical spine was performed according to the usual protocol. Posterior fossa structur es appear intact. No bony signal abnormality seen. There are prominent disc bulges at C5-6 and C6-7. There is an apparent mild broad-based disc herniat ion at C6-7 with slight anterior flattening of the cord surface at this level. No additional disc herniation identified in the cervical region. The bony spinal canal and neural for jose c appear intact. Spinal cord is of normal diameter and shows normal signal throughout. IMPRESSION: Prominent disc bulges at C5-6 and C6-7, broad-based, probable mild superimposed broad-based disc jaxon iation at C6-7 with slight flattening of anterior cord surface. The examination is compared with alexis or study of August 25, 2019 and there has been progression of the findings at C5-6 and C6-7 since t hat time. Please correlate with the patient's neurologic examination. DATA REPOSITORY:
--- NOTE | 2020-09-22 14:53 | DI.RAD_ITS ---
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 COMPARISON: No exams were available for comparison FINDINGS: Images both rib cages reveal mild thoracic scoliosis convex right. There are no cervical ribs eviden t on the left side. The right transverse process of C7 is slightly prominent. Unfortunately is not entirely included in the field of view. There are no rib fractures. No rib lesions. Slight shorten ing of the right 6th rib is noted. No pulmonary findings nor pleural effusions. No pneumothorax. H eart size normal. No osseous lesions. IMPRESSION: 1. No acute pulmonary findings. 2. No focal rib findings but there is a slightly prominent transverse process of C7 on the right side partially included. Given the history here recommend cervical spine views. DATA REPOSITORY: RADIATION DOSE DELIVERED:
== END 2020-09-22 00:51 ==
PROVIDERS: PCP Nurse Practitioner Family; Visit Provider Nurse Practitioner Family
DX: G54.0 Brachial plexus disorders (principal); M50.122 Cervical disc disorder at C5-C6 level with radiculopathy; M50.123 Cervical disc disorder at C6-C7 level with radiculopathy; R20.0 Anesthesia of skin; M41.84 Other forms of scoliosis, thoracic region
CPT/HCPCS: 71110; 72141

== ENCOUNTER 2023-01-03 14:16 | Outpatient (CLI) | payer MEDICAID, SELFPAY ==
--- NOTE | 2023-01-03 | DI.US_ITS ---
Exam(s) US OB 1ST TRIMESTER EXAM: US OB 1ST TRIMESTER CLINICAL HISTORY: EARLY ,CRAMPING,HIGH RISK,IRREGULAR MENSES. COMPARISON: No exams were available for comparison TECHNIQUE: Transabdominal Transvaginal first trimester obstetrical ultrasound performed. FINDINGS: Sonographic images demonstrate a single intrauterine gestation. A yolk sac and pole are seen. No free fluid identified. No evidence of subchorionic hemorrhage. Pelvic Measurments Uterus: 9.3 x 5.1 x 6.9 cm Rt Ovary: 3.9 x 4.3 x 3.3 cm, 2 x 9 centimeter corpus luteum cyst. Lt Ovary: 3.9 x 3.5 x 2 cm, Biometry CRL: 15cm, movement noted. Yolk Sac: Normal Composite Age: 7 weeks 6 days EDC by US: 16 August 2023 Heart Rate: 152BPM IMPRESSION: Single live intrauterine gestation measuring 7 weeks 6 days. DATA REPOSITORY:
== END 2023-01-03 14:36 ==
LOC: DI 14:19
PROVIDERS: Visit Provider Advanced Practice Midwife
DX: Z34.91 Encounter for supervision of normal pregnancy, unspecified, first trimester (principal); Z3A.01 Less than 8 weeks gestation of pregnancy; N83.11 Corpus luteum cyst of right ovary
CPT/HCPCS: 76801

== ENCOUNTER 2023-01-24 03:38 | Outpatient (CLI) | payer MEDICAID, SELFPAY ==
[2023-01-24 15:33] LABS: Panorama Kit Sent via Fed Ex
[2023-01-24 16:06] LABS: Abs Immature Grans 0.03 10^3/uL (0.0-0.06); Absolute Basophil Count 0.05 10^3/uL (0.0-0.2); Absolute Eosinophil Count 0.18 10^3/uL (0.0-0.7); Absolute Neutrophil Count 6.13 10^3/uL (1.2-6.7); Basophils % 0.6; Eosinophils % 2.1; HCT 43.1 % (36.0-46.0); HGB 14.6 g/dL (11.2-15.7); Immature Grans % 0.4; MCH 29.4 pg (27.0-33.0); MCHC 33.9 % (32.0-36.0); MCV 87 fL (80-95); MPV 9.8 fL (8.0-11.0); Monocytes % 4.7; Neutrophils % 72.2; Platelet Count 377 10^3/uL (130-400); RBC 4.96 10^6/uL (3.93-5.22); RDW 13.2 % (11.7-14.6); RDW-SD 41.2 fL; WBC 8.49 10^3/uL (4.4-10.8)
[2023-01-24 16:20] LABS: Glucose,1 Hr (Glucola) 92 mg/dL (80-140)
[2023-01-27 10:06] LABS: HIV-1/2 Ag & Ab Screen Negative (Negative)
[2023-01-28 09:16] LABS: Hepatitis B Surface Ag Negative (Negative)
[2023-01-28 09:56] LABS: Hepatitis C Ab w Rflx HCV PCR Negative (Negative)
[2023-01-28 10:49] LABS: Varicella IgG Antibody Positive (See Note)
[2023-01-28 11:23] LABS: Rubella IgG Ab (UVM) Positive (See Note)
[2023-01-28 14:47] LABS: Syphilis IgG w/Reflex Nonreactive (Nonreactive)
[2023-02-05 00:54] LABS: Result Summary NEGATIVE; Specimen WB Whole Blood
== END 2023-01-24 03:39 | disposition home or self-care (01) ==
LOC: LBO 03:38
PROVIDERS: Visit Provider Advanced Practice Midwife
DX: Z34.91 Encounter for supervision of normal pregnancy, unspecified, first trimester (principal); Z3A.10 10 weeks gestation of pregnancy
CPT/HCPCS: 36415; 81220; 81222; 82950; 86787; 86803; 86850; 86900; 86901; 87340; 87389; 85025; 86762; 86780

== ENCOUNTER 2023-01-24 16:31 | Outpatient (REF) | payer MEDICAID, SELFPAY ==
--- NOTE | 2023-01-24 14:00 | PAPFT_PTH ---
PATIENT: Elidia Brennan LOC: [facility] U#:[id number] AGE/SX: 32/F ROOM: RE01/24/[address]: Theresa Moreno : 1990 BED: DIS: 01/24/2023 SPEC #: [id number] RECD: 01/24/23 18:00 STATUS: ALECIA REPk #: [id number] HAIR: 01/24/23 14:[address]: Theresa Moreno DEPT: [facility] Cytology RECD BY: Gena Davies Tissues: 1 - CX/ENDOCX FOR PAP SMEARS Procedures: PAP THIN PREP/UVM Screening HPV DNA PROBE Comments: [id number]
[2023-01-24 19:04] LABS: *AMPHETAMINES SCREEN URINE Negative (Negative); *BARBITURATES SCREEN URINE Negative (Negative); *BENZODIAZEPINES SCREEN URINE Negative (Negative); Cannabinoids THC Negative (Negative); Cocaine Screen,Urine Negative (Negative); METHADONE URINE SCREEN Negative (Negative); OPIATES URINE SCREEN Negative (Negative)
[2023-01-24 19:06] LABS: Tricyclic Antidepressants Negative (Negative)
[2023-01-26 13:20] LABS: Chlamydia Result Negative (Negative); GC Result Negative (Negative)
[2023-01-31 11:54] LABS: Buprenorphine 8.6 ng/mL (Cutoff: 5.0); Norbuprenorphine 8.5 ng/mL (Cutoff: 2.5)
== END 2023-01-24 16:32 | disposition home or self-care (01) ==
LOC: LBN 16:31
PROVIDERS: Visit Provider Advanced Practice Midwife
DX: Z34.91 Encounter for supervision of normal pregnancy, unspecified, first trimester (principal); Z11.3 Encounter for screening for infections with a predominantly sexual mode of transmission; Z12.4 Encounter for screening for malignant neoplasm of cervix; Z3A.10 10 weeks gestation of pregnancy; Z11.51 Encounter for screening for human papillomavirus (HPV)
CPT/HCPCS: 80307; 80348; 87491; 87591; 88142; 87086; 87480; 87510; 87624; 87660